=== PATIENT | male | born 1995 | race African-American/Black ===

== ENCOUNTER 2017-06-30 23:51 | Emergency (ER) | payer SELFPAY ==
[2017-07-01] MEDS ORDERED: predniSONE 20 MG TAB ONE (00:29)
== END 2017-07-01 00:51 | disposition home or self-care (01) ==
LOC: ERS 23:51
DX: J45.901 Unspecified asthma with (acute) exacerbation (principal); F17.210 Nicotine dependence, cigarettes, uncomplicated
CPT/HCPCS: 94640; J7506; J7620